=== PATIENT | female | born 2000 | race Caucasian/White ===

== ENCOUNTER 2020-07-07 21:01 | Day surgery (SDC) | payer OTHER ==
[2020-07-07] MEDS ORDERED: hydrALAZINE 20 MG/ML VIAL SLOW IVP PRN (21:09)
[2020-07-07 21:35] VITALS: BMI 30.2
--- NOTE | 2020-07-07 21:52 | PDOC.LDHP ---
Labor and Delivery H&P Chief complaint: other (back pain) HPI: 19 y/o G1 at 37w1d, patient of Dr. Morales, presents with low back pain with movement and walking. Especially worse when she is working. Denies VB, LOF, ctx, UTI sx, or other concerns. +FM ROS neg for HEENT, cv, pulm, gi, gu, neuro, psych, skin, musculoskeletal or constitutional symptoms other than mentioned above. OB History Details: First Current complications: none Past Medical History: None Current medications: pre-geovanna vitamins Previous surgical history: none Allergies/Adverse Reactions: Allergies Allergy/AdvReac Type Severity Reaction Status Date / Time Penicillins Allergy Unknown Verified 07/07/20 21:53 - Physical Exam Vital signs reviewed and normal: yes General: NAD, resting Lungs: nonlabored breathing Abdomen: gravid Extremeties: no edema FHT: category 1 (150s, mod variability, + accels, no decels) [place] contractions every: rare - Vaginal Exam cm dilated: 1 (posterior) Effacement: 0% Station: -1 - Assessment 19 y/o G1 at 37w1d with musculoskeletal discomforts of . status reassuring with reactive NST. - Plan -: Comfort measures discussed. D/c home with precautions. Next appointment scheduled for 07/14/20
== END 2020-07-07 22:00 | disposition home or self-care (01) ==
LOC: LABCOM 21:01 → L&D/OP 21:01
PROVIDERS: ATTEND Family Medicine
DX: O26.893 Other specified pregnancy related conditions, third trimester (principal); M54.5 Low back pain; Z3A.37 37 weeks gestation of pregnancy; Z88.0 Allergy status to penicillin
CPT/HCPCS: 99282

== ENCOUNTER 2020-07-14 22:34 | Day surgery (SDC) | payer OTHER ==
[2020-07-14 23:21] VITALS: BMI 30.2
[2020-07-15] MEDS ORDERED: hydrALAZINE 20 MG/ML VIAL SLOW IVP PRN (06:56)
--- NOTE | 2020-07-15 07:43 | PRG ---
DATE OF SERVICE: 07/14/2020 PRIMARY OB: Rich Morales MD CHIEF COMPLAINT: Contractions. HISTORY OF PRESENT ILLNESS: The patient is a 19-year-old, G1, P0 female with an intrauterine at 38 weeks and 3 days, presenting to Labor and Delivery with a 1-day history of uterine contractions that is being intensified since 10 o'clock this evening. The patient is unable to tell me how frequently she feels some just as that she has had more intense contractions. The patient denies leakage of fluid, vaginal bleeding. She reports good movement. She denies fever, cough, headache, chest pain, shortness of breath, nausea, vomiting, diarrhea, or constipation. She denies hip problems, knee problems, or muscle weakness. She denies any new rashes. She denies vaginal bleeding, leakage of fluid, urinary urgency, or frequency. PAST MEDICAL HISTORY: Negative. PAST SURGICAL HISTORY: Negative. ALLERGIES: PENICILLIN. MEDICATIONS: vitamins. OB LABS: Unavailable at the time of dictation. SOCIAL HISTORY: Denies drug, alcohol, or tobacco use. REVIEW OF SYSTEMS: Per HPI. PHYSICAL EXAMINATION: VITAL SIGNS: Blood pressure 125/67, heart rate is 78, respiratory rate of 20, temperature 98.2. GENERAL: She appears to be in no acute distress. She is alert, oriented, cooperative, and pleasant to interact with. HEAD: Normocephalic, atraumatic. LUNGS: Clear to auscultation bilaterally. HEART: Has a regular rate and rhythm. ABDOMEN: Gravid, soft, nontender. EXTREMITIES: Nontender, nonedematous. : Her cervical exam per nursing staff is 3.5, 90, and 0 station, unchanged after three hours. heart tracing shows the fetus with a baseline in the 140s with moderate long-term variability, positive 15 x 15 accelerations, no decelerations. Contractions appear to be very irregular and infrequent anywhere from every minute to every 7 to 8 minutes. ASSESSMENT AND PLAN: The patient is a 19-year-old with an intrauterine at 38 weeks, here for evaluation of labor. The patient has no evidence of active labor at this time and is being discharged home. The fetus has a category 1 tracing and reactive NST. She has been given term labor precautions. The patient has a routine followup. Job ID: [id number]
== END 2020-07-15 02:45 | disposition home or self-care (01) ==
LOC: L&D/OP 22:34
PROVIDERS: ATTEND Family Medicine
DX: O47.1 False labor at or after 37 completed weeks of gestation (principal); Z3A.38 38 weeks gestation of pregnancy; Z88.0 Allergy status to penicillin
CPT/HCPCS: 99283

== ENCOUNTER 2020-07-16 11:21 | Inpatient (IN) | payer OTHER ==
[2020-07-16 11:54] VITALS: BMI 31.1
[2020-07-16] MEDS ORDERED: hydrALAZINE 20 MG/ML VIAL SLOW IVP PRN ×2 (12:20→17:47)
[2020-07-16] MEDS ORDERED: Butorphanol Tartrate 1 MG/ML VIAL SLOW IVP PRN (12:20)
[2020-07-16] MEDS ORDERED: NS / Oxytocin 40 units/1000ml 1,000 ML IV PRN (12:20)
[2020-07-16] MEDS ORDERED: Ibuprofen 800 MG TAB PO PRN (12:20)
[2020-07-16] MEDS ORDERED: Ondansetron PF 4 MG/2 ML Vial IVP PRN ×3 (12:20→17:47)
[2020-07-16] MEDS ORDERED: HYDROcodone/Acetaminophen 5/325 mg Tablet PO PRN ×4 (12:20→17:47)
[2020-07-16] MEDS ORDERED: Lidocaine 1% (PF) 30 ML VIAL SC PRN (12:20)
[2020-07-16] MEDS ORDERED: Bupivacaine HCl 0.25%/Epi 0.0005/PF 10 ML VIAL FS ONE (12:29)
[2020-07-16] MEDS ORDERED: Lactated Ringer's 1,000 ML IV SCH (12:30)
[2020-07-16] MEDS ORDERED: Lidocaine 1% (PF) 30 ML VIAL ONE (12:54)
[2020-07-16 13:33] LABS: Hemoglobin 12.9 g/dL (12.0-16.0); Mean Corpuscular HGB CONC 33.8 g/dL (32.0-36.0); Mean Corpuscular Hemoglobin 29.3 pg (27.0-31.0); Mean Corpuscular Volume 86.7 fL (78.0-98.0); Mean Platelet Volume 9.5 fL (7.4-10.4); Platelet Count 160 thou/uL (130-400); RBC Distribution Width 12.2 % (11.5-14.5); Red Blood Cell (RBC) Count 4.39 mill/uL (4.20-5.40); White Blood Cell (WBC) Count 14.5 thou/uL (4.8-10.8)
[2020-07-16] MEDS ORDERED: Fentanyl 4 mcg/Bup 0.1% Cadd 100 ML ONE (13:50)
[2020-07-16 14:14] LABS: Syphilis Antibody Nonreactive (Nonreactive); Syphilis Antibody Index 0.25 S/CO (<1.00 Non-Reactive)
[2020-07-16 14:15] LABS: HBSAg Index 0.24 S/CO (0-0.99); Hep B Surf Ag Non-Reactive S/CO (NonReactive)
[2020-07-16] MEDS ORDERED: Naloxone HCl 0.4 mg/ml Vial IVP PRN ×2 (14:31)
[2020-07-16] MEDS ORDERED: Acetaminophen 325 MG TAB PO PRN (14:31)
[2020-07-16] MEDS ORDERED: Lactated Ringer's 500 ML IV PRN (14:31)
[2020-07-16] MEDS ORDERED: ePHEDrine 50 MG/ML VIAL SLOW IVP PRN (14:31)
[2020-07-16] MEDS ORDERED: diphenhydrAMINE 50 MG/ML VIAL IVP PRN (14:31)
[2020-07-16] MEDS ORDERED: Promethazine HCl 25 MG/ML VIAL IM PRN ×2 (14:31→17:47)
[2020-07-16] MEDS ORDERED: Communication Order-Pharmacy FS PRN (14:45)
[2020-07-16] MEDS ORDERED: Fentanyl 4 mcg/Bupivacaine 0.1% Cassette 100 ML EPIDURAL SCH (14:45)
[2020-07-16] MEDS ORDERED: FLU VACC QS2020-21(6MOS UP)/PF 60 MCG/0.5 ML SYRINGE IM ONE (15:00)
[2020-07-16] MEDS: NS w/ Oxytocin 30 units 500 ML ONE ×2 (17:36→17:43)
[2020-07-16] MEDS ORDERED: NS w/ Oxytocin 30 units 500 ML ONE (17:42)
[2020-07-16] MEDS ORDERED: Bisacodyl 10 MG SUPP PR PRN (17:47)
[2020-07-16] MEDS ORDERED: NS / Oxytocin 40 units/1000ml 1,000 ML IV SCH (17:47)
[2020-07-16] MEDS ORDERED: Lanolin Ointment 7 GM TUBE TOP PRN (17:47)
[2020-07-16] MEDS ORDERED: Benzocaine-Menthol 82.5 ML CAN TOP PRN (17:47)
[2020-07-16] MEDS ORDERED: diphenhydrAMINE 25 MG CAP PO PRN (17:47)
[2020-07-16] MEDS ORDERED: Milk Of Magnesia 30 ML UDCUP PO PRN (17:47)
[2020-07-16] MEDS ORDERED: Adacel (T-DAP) 0.5 ML SYRINGE IM ONE (17:47)
[2020-07-16 21:28] LABS: SARS-CoV-2 MS2 Positive; SARS-CoV-2 N Gene Negative; SARS-CoV-2 S Gene Negative; SARS-CoV-2 by NAA Not Detected (NotDetected); SARS-CoV-2 orf1ab Negative
[2020-07-17] MEDS: Ibuprofen 800 MG TAB PO SCH ×4 (00:03→21:43)
[2020-07-17] MEDS: Docusate Calcium (SURFAK) 240 MG CAP PO SCH ×3 (00:04→21:43)
[2020-07-17] MEDS ORDERED: Sodium Chloride 0.9% 10 ML ONE (02:38)
[2020-07-17] MEDS: Prenatal Vitamin 1 TAB PO SCH (09:44)
[2020-07-17] MEDS: Ferrous Sulfate 325 MG TAB PO SCH ×2 (09:45→18:34)
[2020-07-18] MEDS: Ibuprofen 800 MG TAB PO SCH ×2 (06:09→14:36)
[2020-07-18] MEDS: Ferrous Sulfate 325 MG TAB PO SCH (07:57)
[2020-07-18] MEDS: Docusate Calcium (SURFAK) 240 MG CAP PO SCH (09:32)
[2020-07-18] MEDS: Prenatal Vitamin 1 TAB PO SCH (09:32)
[2020-07-18 10:56] VITALS: BP 118/70; TEMP 97.9
== END 2020-07-18 16:45 | disposition home or self-care (01) | DRG 807 ==
LOC: L&D/OP 11:21 → L&D 12:21 → 3SW 23:52
PROVIDERS: ADMIT Family Medicine; ATTEND Family Medicine
PROC: 10E0XZZ Delivery of Products of Conception, External Approach (ICD-10-PCS; principal; 2020-07-16)
PROC: 10907ZC Drainage of Amniotic Fluid, Therapeutic from Products of Conception, Via Natural or Artificial Opening (ICD-10-PCS; 2020-07-16)
PROC: 0W8NXZZ Division of Female Perineum, External Approach (ICD-10-PCS; 2020-07-16)
DX: O69.81X0 Labor and delivery complicated by cord around neck, without compression, not applicable or unspecified (principal); Z37.0 Single live birth; Z20.822 Contact with and (suspected) exposure to COVID-19; Z3A.38 38 weeks gestation of pregnancy
CPT/HCPCS: 36415; 51702; 85027; 86780; 86850; 86900; 86901; 87340; 87635; 99283; 99285; J2001; J2590; U0003

== ENCOUNTER 2024-04-09 21:26 | Emergency (ER) | payer OTHER ==
[2024-04-09 22:11] LABS: Pregnancy Test - Urine (BHCG) Negative (Negative); Pregu Control Background? CLEAR/WHITE (CLR/WHITE); Pregu Control Bar Appear? YES (CONTROL BAR); Specific Gravity 1.029 (1.002-1.036)
[2024-04-09 22:14] LABS: Bacteria/HPF 1+ HPF (None Seen); Bilirubin Negative (Negative); Blood, Urine Negative (Negative); CAUTI Indications for Culture Dysuria,urgency,freq; Clarity Clear (Clear); Glucose, Urine (Dipstick) Normal (Negative); Ketone, Urine Negative (Negative); Leukocyte 250 Leu/uL (Negative); Nitrite Negative (Negative); Protein, Urine (Dipstick) 20 mg/dL (Neg-Trace); Specific Gravity, Urine 1.029 (1.002-1.036); Squamous Epithelial 0-3 HPF (0-3); pH, Urine 6.5 (5.0-9.0)
[2024-04-09 22:15] LABS: Urine Culture Reflex No No
[2024-04-09] MEDS ORDERED: Metoclopramide HCl 10 MG (2 mL) VIAL ONE (22:49)
[2024-04-09] MEDS ORDERED: diphenhydrAMINE 50 MG/ML VIAL ONE (22:49)
[2024-04-09] MEDS ORDERED: Acetaminophen 500 MG TAB ONE (22:49)
[2024-04-09] MEDS ORDERED: Meclizine HCl 25 MG TAB ONE (22:49)
[2024-04-10] MEDS ORDERED: diphenhydrAMINE 50 MG/ML VIAL ONE (01:02)
[2024-04-10] MEDS ORDERED: Metoclopramide HCl 10 MG (2 mL) VIAL ONE (01:02)
[2024-04-10] MEDS ORDERED: Acetaminophen 500 MG TAB ONE (01:02)
[2024-04-10] MEDS ORDERED: Meclizine HCl 25 MG TAB ONE (01:02)
== END 2024-04-10 04:30 | disposition home or self-care (01) ==
LOC: ERS 21:26
DX: N39.0 Urinary tract infection, site not specified (principal); R51.9 Headache, unspecified
CPT/HCPCS: 71045; 81001; 81025; 87086; 96365; 96366; 96375; J1200; J2765

== ENCOUNTER 2024-06-11 19:30 | Emergency (ER) | payer OTHER | END 2024-06-11 21:05 | disposition home or self-care (01) | LOC: ERS 19:30 | DX: B34.9 Viral infection, unspecified (principal) | CPT/HCPCS: 87428; 99283 ==

== ENCOUNTER 2025-05-18 14:25 | Outpatient (CLI) | payer OTHER | END 2025-05-18 14:26 | disposition home or self-care (01) | LOC: ULT 14:25 | PROVIDERS: ATTEND Family Medicine | DX: Z34.82 Encounter for supervision of other normal pregnancy, second trimester (principal); Z3A.20 20 weeks gestation of pregnancy | CPT/HCPCS: 76805 ==